=== PATIENT | male | born 2000 | race African-American/Black ===

== ENCOUNTER 2018-12-19 15:51 | Emergency (ER) | payer SELFPAY ==
[~2018-12-19] VITALS: Ht 167.6 cm; Wt 67.1 kg
[2018-12-19] MEDS ORDERED: AZITHROMYCIN 250 MG TAB PO ONE (16:15)
[2018-12-19] MEDS ORDERED: AZITHROMYCIN 250 MG TAB PO NR (16:15)
[2018-12-19] MEDS ORDERED: CEFTRIAXONE SOD 1 GM VIAL IM NR (16:15)
== END 2018-12-19 16:37 | disposition home or self-care (01) ==
LOC: ER 15:51
DX: N48.1 Balanitis (principal)
CPT/HCPCS: 99283; J0696